=== PATIENT | male | born 2000 | race Hispanic/Latino ===

== ENCOUNTER 2025-02-07 06:04 | Emergency (ER) | payer SELFPAY ==
[~2025-02-07] VITALS: Ht 165.1 cm; Wt 68.0 kg
[2025-02-07 06:08] VITALS: BP 107/65; PULSE 68; RESP 20; TEMP 98.5
--- NOTE | 2025-02-07 07:02 | ERN ---
General Chief Complaint: Abdominal Pain Stated Complaint: C/O ABD PAIN TO LEFT SIDE RADIATING TO BACK X 3 DA Time Seen by MD: 06:54 Source: patient, family History of Present Illness Initial Comments 24-year-old male with abdominal pain that started infraumbilically in the left lower quadrant and then radiated around to his left flank and into his back all the way to his right flank. The pain feels like a constant burning sensation and is constant and has been going on for the last two days this morning being in a worst. He states that he also had some cold sweats in the last two days. His past medical history is remarkable for H pylori two years ago which he states was treated. He says he has been diagnosed with diverticulitis and fatty liver a year ago. During the exam his pain seemed to increase as he tends to stomach muscles but he has not been working out lately and has not been doing any heavy physical activity either. Timing/Duration: 24 hours, constant Severity: mild Allergies: Coded Allergies: No Known Allergies (Unverified Allergy, Unknown, 02/07/25) Past Medical History Past Medical History: Diverticulosis, Other Medical History Other: HX OF H PYLORI, fatty liver Past Surgical History: None ROS Dictation Review of systems is otherwise negative patient states no chest pain no shortness of breath no visual changes no difficulty urinating no difficulty with bowel movements Physical Exam General Appearance: (+) no apparent distress Orientation: (+) oriented x 3 Head/Face Trauma: No Eye: bilateral eye normal inspection, bilateral eye PERRL, bilateral eye EOMI Ear, Nose, Throat: (+) hearing grossly normal, (+) normal ENT inspection Neck: (+) normal inspection, (+) supple Respiratory: (+) chest non-tender, (+) lungs clear, (+) well ventilated Heart: (+) regular Vascular: (+) no edema, (+) normal peripheral pulse, (+) no JVD Gastrointestinal: (+) soft, (+) no organomegaly, (+) bowel sound present, (+) tender Extremities: (+) normal range of motion, (+) non-tender Neurologic/Psychiatric: (+) normal speech, (+) no motor defecits Reflexes: Normal Results Laboratory and Microbiology Labs Reviewed?: Yes MDM MDM: Differential diagnosis: [place] pain Rationale: Tests considered and ordered secondary to shared decision making include: Previous outside records reviewed: Old ER visits. Risk of complication and/or morbidity or mortality of patient management: None Medications-Per medication reconciliation Need for hospitalization: Patient does not meet criteria for hospitalization. Need for emergency major/minor surgery: No There are no social concerns with this patient. Prescription drug management Prescriptions will include symptomatic care Patient's prior external medical records from other ER visits were reviewed by me as indicated. Prior testing and results from previous visits were reviewed. Prior tests were taken into account with medical decision making and resource utilization, independent historian/historians were used to obtain complete medical history. I independently interpreted the test that were performed, results were reviewed by me and considered findings on radiology if ordered. Medical management and examination interpretation discussions were had by me with other qualified healthcare professionals as indicated for the patient's care. ED Course Orders Procedure Category Date Status Time Cbc With Differential LAB 02/07/25 Logged 06:54 Basic Metabolic Panel LAB 02/07/25 Logged 06:54 Hepatic Function Panel LAB 02/07/25 Logged 06:54 Lipase LAB 02/07/25 Logged 06:54 Urinalysis LAB 02/07/25 Logged W/Microscopic 07:44 Drug Screen Urine LAB 02/07/25 Logged 07:44 Vital Signs Date Time Temp Pulse Resp B/P (MAP) Pulse Ox O2 Delivery O2 Flow Rate FiO2 02/07/25 06:08 98.4 68 20 107/65 98 Room Air DX & DISP Disposition: AMA Departure Impression: Primary Impression: Abdominal pain Condition: Against Medical Advice Additional Instructions: Was notified by nursing staff the patient eloped Referrals: SELF,REFERRAL (PCP) Time of Disposition: 08:00 JACK JOHNS MD Feb 07, 2025 07:02 MARTHA CISNEROS MD Feb 07, 2025 08:00
== END 2025-02-07 08:02 | disposition left against medical advice (07) ==
LOC: EDH 06:04
DX: R10.32 Left lower quadrant pain (principal)
CPT/HCPCS: 99281